=== PATIENT | female | born 1950 | race Caucasian/White ===

== ENCOUNTER 2021-01-05 12:39 | Inpatient (IN) ==
[2021-01-05] MEDS ORDERED: *HR* FentaNYL (PF) 100 MCG/2 ML VIAL ONE (12:46)
[2021-01-05] MEDS ORDERED: *HR* FentaNYL (PF) 100 MCG/2 ML VIAL IVP ONE (12:47)
[2021-01-05] MEDS ORDERED: Tdap (Boostrix) Vaccine 0.5 ML SYRINGE IM ONE (12:51)
[2021-01-05 13:11] LABS: Basophils % 0.3 %; Eosinophils # 0.1 K/mcL (0.0-0.6); Eosinophils % 3.3 %; Hematocrit 26.2 % (35.3-44.9); Hemoglobin 8.6 g/dL (11.5-15.4); Immature Granulocytes % 0.7 % (0-4); Lymphocytes # 0.9 K/mcL (0.6-4.6); Lymphocytes % 28.2 %; Mean Corpuscular HGB Conc 32.8 g/dL (31.6-35.5); Mean Corpuscular Hemoglobin 31.9 pg (28.0-33.3); Mean Platelet Volume 8.8 fL (9.4-12.4); Monocytes # 0.3 K/mcL (0.0-1.3); Monocytes % 9.6 %; Neutrophils # 1.7 K/mcL (1.6-8.9); Platelet Count 122 K/mcL (140-400); Red Cell Distribution Width 12.1 % (11.5-14.5); Segmented Neutrophils % 57.9 %
[2021-01-05] MEDS ORDERED: *HR* HYDROmorphone (PF) 1 MG/ML SYRINGE IVP ONE ×3 (13:21→16:22)
[2021-01-05 13:31] LABS: Alanine Aminotransferase 12 Units/L (7-52); Albumin 3.7 g/dL (3.5-5.7); Albumin/Globulin Ratio 1.3 (1.1-2.2); Alkaline Phosphatase 85 Units/L (34-104); Aspartate Amino Transferase 19 Units/L (13-39); BUN/Creatinine Ratio 19 (6-26); Bilirubin,Direct 0.1 mg/dL (0.0-0.2); Bilirubin,Indirect 0.5 mg/dL (0.0-1.0); Bilirubin,Total 0.6 mg/dL (0.3-1.0); Blood Urea Nitrogen 14 mg/dL (8-23); Calcium 9.2 mg/dL (8.6-10.3); Carbon Dioxide 30 mEq/L (23-29); Chloride 104 mEq/L (98-107); Globulin 2.8 g/dL (2.4-3.5); Glucose 127 mg/dL (70-105); Lipase 5 Units/L (11-82); Osmolality,Calculated 290 (280-300); Potassium 4.2 mEq/L (3.5-5.1); Sodium 139 mEq/L (136-145); Total Protein 6.5 g/dL (6.4-8.9); Troponin I < 0.03 ng/mL (< 0.04); eGFR For African Americans > 60 (> 60); eGFR For Non-African Americans > 60 (> 60)
[2021-01-05] MEDS ORDERED: Ondansetron 4 MG/2 ML VIAL IVP PRN ×2 (13:38→16:39)
[2021-01-05] MEDS ORDERED: Isovue-370 500 ML BOTTLE IVP ONE ×2 (13:54→14:50)
[2021-01-05 14:22] LABS: Bilirubin,Urine Negative (Negative); Blood,Urine Negative (Negative); Clarity,Urine Clear (Clear); Color,Urine Light-Yellow (Yellow); Glucose,Urine (UA) Normal (Normal); Ketones,Urine Negative (Negative); Leukocyte Esterase,Urine Negative (Negative); Nitrite,Urine Negative (Negative); Protein,Urine Negative (Neg-Trace); Specific Gravity,Urine 1.014 (1.010-1.025); Urobilinogen,Urine Normal (Normal)
[2021-01-05] MEDS ORDERED: Naloxone 0.4 MG/ML INJ IVP PRN (16:39)
[2021-01-05] MEDS ORDERED: Dextrose Gel 15 GM/37.5 ML TUBE PO PRN ×2 (16:41)
[2021-01-05] MEDS ORDERED: D5% in Water 1,000 ML IVC PRN (16:41)
[2021-01-05] MEDS ORDERED: *HR* Dextrose 50 % in Water (Syg) 50 ML SYRINGE IVP PRN (16:41)
[2021-01-05] MEDS ORDERED: Insulin LISPRO 300 UNITS/3 ML VIAL SUBQ SCH (21:00)
[2021-01-05] MEDS: *HR* HYDROmorphone 2 MG/ML SYRINGE IVP PRN (21:10)
[2021-01-06] MEDS: *HR* HYDROmorphone 2 MG/ML SYRINGE IVP PRN (01:25)
[2021-01-06] MEDS: *HR* HYDROcodone/Acet 5/325 mg TABLET PO PRN ×2 (02:59→12:59)
[2021-01-06] MEDS ORDERED: Pantoprazole 40 MG VIAL IVP SCH (06:00)
[2021-01-06 06:07] LABS: Immature Reticulocyte % 11.1 % (11.0-38.0); Retculocyte # 0.08 M/mcL (0.05-0.10); Reticulocyte % 1.8 % (1.6-2.8)
[2021-01-06 06:29] LABS: BUN/Creatinine Ratio 26 (6-26); Blood Urea Nitrogen 18 mg/dL (8-23); Calcium 9.3 mg/dL (8.6-10.3); Carbon Dioxide 28 mEq/L (23-29); Chloride 101 mEq/L (98-107); Glucose 170 mg/dL (70-105); Osmolality,Calculated 288 (280-300); Phosphorous 4.2 mg/dL (2.7-4.5); Potassium 4.5 mEq/L (3.5-5.1); Sodium 136 mEq/L (136-145); eGFR For African Americans > 60 (> 60); eGFR For Non-African Americans > 60 (> 60)
[2021-01-06 06:30] LABS: % Iron Saturation 24 % (15-50); Iron 96 mcg/dL (50-170); Transferrin 291 mg/dL (203-362)
[2021-01-06 06:45] LABS: Ferritin 136 ng/mL (10-120)
[2021-01-06 06:50] LABS: Folate 14.1 ng/mL (3.0-16.0)
[2021-01-06 07:18] LABS: Basophils % 0.2 %; Eosinophils % 0.1 %; Hematocrit 41.7 % (35.3-44.9); Immature Granulocytes % 0.3 % (0-4); Lymphocytes # 0.8 K/mcL (0.6-4.6); Lymphocytes % 9.1 %; Mean Corpuscular HGB Conc 33.3 g/dL (31.6-35.5); Mean Corpuscular Hemoglobin 31.4 pg (28.0-33.3); Mean Corpuscular Volume 94.3 fL (83.0-100.0); Mean Platelet Volume 9.1 fL (9.4-12.4); Monocytes # 0.6 K/mcL (0.0-1.3); Monocytes % 6.8 %; Platelet Count 194 K/mcL (140-400); Red Blood Count 4.42 M/mcL (3.82-4.97); Red Cell Distribution Width 12.2 % (11.5-14.5); Segmented Neutrophils % 83.5 %; White Blood Count 9.2 K/mcL (4.3-11.1)
[2021-01-06] MEDS ORDERED: *HR* Propofol 200 MG/20 ML VIAL IVP ONE (07:29)
[2021-01-06] MEDS ORDERED: *HR* FentaNYL (PF) 100 MCG/2 ML VIAL ONE (07:29)
[2021-01-06] MEDS ORDERED: Insulin LISPRO 300 UNITS/3 ML VIAL SUBQ SCH (07:30)
[2021-01-06] MEDS ORDERED: Vancomycin 1,000 MG VIAL ONE (07:32)
[2021-01-06] MEDS ORDERED: Lidocaine -MPF 2% 5 ML VIAL ONE (07:39)
[2021-01-06] MEDS ORDERED: *HR* Succinylcholine 200 MG/10 ML VIAL IVP ONE (07:39)
[2021-01-06] MEDS ORDERED: *HR* Rocuronium Bromide 50 MG/5 ML VIAL ONE (07:39)
[2021-01-06] MEDS ORDERED: Ondansetron 4 MG/2 ML VIAL ONE (07:39)
[2021-01-06] MEDS ORDERED: Lidocaine HCL 4 ML Topical Solution (Laryng-O-Jet Kit Sterile Pak) TP ONE (07:39)
[2021-01-06] MEDS ORDERED: Albumin Human 5% 0 GM/0 ML IV.SOLN ONE (07:41)
[2021-01-06] MEDS ORDERED: Vancomycin 1,250 MG/262.5 ML IV.SOLN IVPB ONE ×3 (07:53→20:00)
[2021-01-06 07:58] LABS: Neutrophils # 7.7 K/mcL (1.6-8.9)
[2021-01-06] MEDS ORDERED: Ringers Solution, Lactated 1,000 ML IVC SCH (08:00)
[2021-01-06 08:03] LABS: Hemoglobin 13.9 g/dL (11.5-15.4)
[2021-01-06] MEDS ORDERED: *HR* OxyCODONE Immed Rel 5 MG TABLET PO PRN ×2 (08:12→13:18)
[2021-01-06] MEDS ORDERED: *HR* Midazolam HCl 2 MG/2 ML VIAL IVP PRN ×2 (08:12→13:18)
[2021-01-06] MEDS ORDERED: *HR* FentaNYL (PF) 100 MCG/2 ML VIAL IVP PRN ×2 (08:12→13:18)
[2021-01-06] MEDS ORDERED: amLODIPine 5 MG TABLET PO SCH (09:00)
[2021-01-06] MEDS ORDERED: Metoprolol XL (24 HR) Succ 50 MG TAB.ER.24H PO SCH (09:00)
[2021-01-06] MEDS ORDERED: Sugammadex Sodium 200 MG/2 ML VIAL IV ONE (09:18)
[2021-01-06] MEDS ORDERED: Naloxone 0.4 MG/ML INJ IVP PRN (13:18)
[2021-01-06] MEDS ORDERED: Dextrose Gel 15 GM/37.5 ML TUBE PO PRN ×2 (13:18)
[2021-01-06] MEDS ORDERED: Vancomycin 1,000 MG VIAL IVPB ONE (13:18)
[2021-01-06] MEDS ORDERED: *HR* HYDROcodone/Acet 5/325 mg TABLET PO PRN (13:18)
[2021-01-06] MEDS ORDERED: Isovue-370 500 ML BOTTLE IVP ONE (13:18)
[2021-01-06] MEDS ORDERED: Ondansetron 4 MG/2 ML VIAL IVP PRN (13:18)
[2021-01-06] MEDS ORDERED: D5% in Water 1,000 ML IVC PRN (13:18)
[2021-01-06] MEDS ORDERED: *HR* Dextrose 50 % in Water (Syg) 50 ML SYRINGE IVP PRN (13:18)
[2021-01-06] MEDS ORDERED: *HR* HYDROmorphone 2 MG/ML SYRINGE IVP PRN (13:18)
[2021-01-06] MEDS ORDERED: Acetaminophen 325 MG TABLET PO PRN (17:40)
[2021-01-06] MEDS: Pantoprazole 40 MG VIAL IVP SCH (19:18)
[2021-01-06] MEDS: Insulin LISPRO 300 UNITS/3 ML VIAL SUBQ SCH ×2 (19:21→20:47)
[2021-01-07] MEDS: Pantoprazole 40 MG VIAL IVP SCH ×2 (05:26→17:37)
[2021-01-07 05:34] LABS: Hematocrit 32.2 % (35.3-44.9)
[2021-01-07 05:52] LABS: BUN/Creatinine Ratio 26 (6-26); Blood Urea Nitrogen 18 mg/dL (8-23); Calcium 8.4 mg/dL (8.6-10.3); Carbon Dioxide 27 mEq/L (23-29); Chloride 103 mEq/L (98-107); Glucose 158 mg/dL (70-105); Osmolality,Calculated 285 (280-300); Potassium 4.3 mEq/L (3.5-5.1); Sodium 135 mEq/L (136-145); eGFR For African Americans > 60 (> 60); eGFR For Non-African Americans > 60 (> 60)
[2021-01-07 08:15] LABS: Estimated Average Glucose 148 mg/dl; Hemoglobin A1C 6.8 %
[2021-01-07] MEDS: Metoprolol XL (24 HR) Succ 50 MG TAB.ER.24H PO SCH (08:32)
[2021-01-07] MEDS: amLODIPine 5 MG TABLET PO SCH (08:33)
[2021-01-07] MEDS: Multivit/Ca/Min/Fe/FA 1 TAB TABLET PO SCH (08:33)
[2021-01-07] MEDS: Insulin LISPRO 300 UNITS/3 ML VIAL SUBQ SCH ×4 (08:34→20:14)
[2021-01-07] MEDS: Aspirin Enteric Coated 325 MG Tablet PO SCH (08:34)
[2021-01-07] MEDS ORDERED: Cholecalciferol (D-3) 1,000 UNIT (25MCG) TABLET PO SCH (09:00)
[2021-01-07] MEDS: *HR* OxyCODONE/APAP 5/325 TABLET PO PRN ×3 (09:04→20:31)
[2021-01-07] MEDS: Ipratropium/Albuterol Neb 3 ML IH SCH ×3 (12:44→20:14)
[2021-01-07] MEDS: levoFLOXacin 750 MG/150 ML 750 MG/150 ML BAG IVPB SCH (12:44)
[2021-01-07] MEDS: Ringers Solution, Lactated 1,000 ML IVC SCH ×2 (14:49→14:50)
[2021-01-08] MEDS: *HR* OxyCODONE/APAP 5/325 TABLET PO PRN ×5 (00:47→20:53)
[2021-01-08] MEDS: Ipratropium/Albuterol Neb 3 ML IH SCH ×4 (03:44→20:43)
[2021-01-08 04:33] LABS: Basophils % 0.2 %; Eosinophils % 0.2 %; Hematocrit 28.3 % (35.3-44.9); Lymphocytes # 1.1 K/mcL (0.6-4.6); Lymphocytes % 13.3 %; Mean Corpuscular HGB Conc 33.2 g/dL (31.6-35.5); Mean Corpuscular Hemoglobin 31.3 pg (28.0-33.3); Mean Corpuscular Volume 94.3 fL (83.0-100.0); Mean Platelet Volume 9.3 fL (9.4-12.4); Monocytes # 0.7 K/mcL (0.0-1.3); Monocytes % 9.1 %; Neutrophils # 6.2 K/mcL (1.6-8.9); Platelet Count 132 K/mcL (140-400); Red Cell Distribution Width 12.3 % (11.5-14.5); Segmented Neutrophils % 76.2 %; White Blood Count 8.1 K/mcL (4.3-11.1)
[2021-01-08 04:34] LABS: Hemoglobin 9.4 g/dL (11.5-15.4)
[2021-01-08 04:54] LABS: BUN/Creatinine Ratio 30 (6-26); Blood Urea Nitrogen 18 mg/dL (8-23); Calcium 8.4 mg/dL (8.6-10.3); Carbon Dioxide 29 mEq/L (23-29); Chloride 100 mEq/L (98-107); Glucose 174 mg/dL (70-105); Magnesium 1.8 mg/dL (1.6-2.6); Osmolality,Calculated 284 (280-300); Sodium 134 mEq/L (136-145); eGFR For African Americans > 60 (> 60); eGFR For Non-African Americans > 60 (> 60)
[2021-01-08] MEDS: Pantoprazole 40 MG VIAL IVP SCH ×2 (05:26→15:43)
[2021-01-08] MEDS: Cholecalciferol (D-3) 1,000 UNIT (25MCG) TABLET PO SCH (08:30)
[2021-01-08] MEDS: levoFLOXacin 750 MG/150 ML 750 MG/150 ML BAG IVPB SCH (08:30)
[2021-01-08] MEDS: amLODIPine 5 MG TABLET PO SCH (08:30)
[2021-01-08] MEDS: Multivit/Ca/Min/Fe/FA 1 TAB TABLET PO SCH (08:31)
[2021-01-08] MEDS: Metoprolol XL (24 HR) Succ 50 MG TAB.ER.24H PO SCH (08:31)
[2021-01-08] MEDS: Aspirin Enteric Coated 325 MG Tablet PO SCH (08:31)
[2021-01-08] MEDS: Insulin LISPRO 300 UNITS/3 ML VIAL SUBQ SCH ×4 (08:33→20:42)
[2021-01-08] MEDS: Ringers Solution, Lactated 1,000 ML IVC SCH (15:43)
[2021-01-09] MEDS: *HR* OxyCODONE/APAP 5/325 TABLET PO PRN ×3 (01:13→14:07)
[2021-01-09] MEDS: Ipratropium/Albuterol Neb 3 ML IH SCH ×2 (03:28→08:25)
[2021-01-09] MEDS: Pantoprazole 40 MG VIAL IVP SCH (05:12)
[2021-01-09 05:20] LABS: Basophils % 0.3 %; Eosinophils # 0.1 K/mcL (0.0-0.6); Eosinophils % 1.5 %; Hematocrit 25.9 % (35.3-44.9); Hemoglobin 8.9 g/dL (11.5-15.4); Immature Granulocytes % 1.8 % (0-4); Lymphocytes % 13.3 %; Mean Corpuscular HGB Conc 34.4 g/dL (31.6-35.5); Mean Corpuscular Hemoglobin 32.2 pg (28.0-33.3); Mean Corpuscular Volume 93.8 fL (83.0-100.0); Mean Platelet Volume 9.9 fL (9.4-12.4); Monocytes # 0.7 K/mcL (0.0-1.3); Monocytes % 9.4 %; Neutrophils # 5.3 K/mcL (1.6-8.9); Nucleated Red Blood Cells 0.4 /100 WBC (0); Platelet Count 144 K/mcL (140-400); Red Blood Count 2.76 M/mcL (3.82-4.97); Red Cell Distribution Width 12.5 % (11.5-14.5); Segmented Neutrophils % 73.7 %; White Blood Count 7.1 K/mcL (4.3-11.1)
[2021-01-09 05:40] LABS: BUN/Creatinine Ratio 23 (6-26); Blood Urea Nitrogen 13 mg/dL (8-23); Calcium 8.1 mg/dL (8.6-10.3); Carbon Dioxide 29 mEq/L (23-29); Chloride 102 mEq/L (98-107); Glucose 155 mg/dL (70-105); Magnesium 1.8 mg/dL (1.6-2.6); Osmolality,Calculated 287 (280-300); Potassium 3.7 mEq/L (3.5-5.1); Sodium 137 mEq/L (136-145); eGFR For African Americans > 60 (> 60); eGFR For Non-African Americans > 60 (> 60)
[2021-01-09] MEDS: Cholecalciferol (D-3) 1,000 UNIT (25MCG) TABLET PO SCH (08:23)
[2021-01-09] MEDS: Multivit/Ca/Min/Fe/FA 1 TAB TABLET PO SCH (08:24)
[2021-01-09] MEDS: amLODIPine 5 MG TABLET PO SCH (08:24)
[2021-01-09] MEDS: Metoprolol XL (24 HR) Succ 50 MG TAB.ER.24H PO SCH (08:24)
[2021-01-09] MEDS: Aspirin Enteric Coated 325 MG Tablet PO SCH (08:24)
[2021-01-09] MEDS: Insulin LISPRO 300 UNITS/3 ML VIAL SUBQ SCH ×2 (08:25→11:50)
[2021-01-09] MEDS: levoFLOXacin 750 MG/150 ML 750 MG/150 ML BAG IVPB SCH (08:25)
[2021-01-09 10:13] VITALS: PULSE 74
[2021-01-09 14:28] VITALS: BP 108/66; TEMP 98.3; O2SAT 95
[2021-01-09 14:56] LABS: Influenza A PCR Negative (Negative); Influenza B PCR Negative (Negative); Resp. Syncytial Virus PCR Negative (Negative); SARS-CoV-2 by PCR (In House) Negative (Negative)
== END 2021-01-09 16:25 | disposition other institution (70) | DRG 480 ==
LOC: EMEROOARM 12:39 → 4WAOSI 12:39 → SUATTDRO 16:43 → 4WAOSI 17:15 → SUATTDRO 01-06 19:08
PROVIDERS: ADMIT Family Medicine; ATTEND Internal Medicine